=== PATIENT | male | born 1955 | race Caucasian/White ===

== ENCOUNTER 2017-03-21 05:30 | Day surgery (SDC) | payer BC ==
[2017-03-18 08:17] LABS: HEMATOCRIT 44.1 % (40.0-51.0); HEMOGLOBIN 14.5 g/dL (13.6-17.8)
--- NOTE | ~2017-03-21 | OP ---
Record Of Operation [facility] [address] [place]. 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 PROCEDURES: Right L3-4 microdiscectomy, use of operative microscope, minimal access spine technology, intraoperative O-arm CT scan with computer navigation. SURGEON: Kody Hernandez DO. ANESTHESIA: General. ESTIMATED BLOOD LOSS: 10 mL. COMPLICATIONS: None. INDICATIONS: The patient is a pleasant, 61-year-old with intractable right buttock and leg pain who failed conservative treatment. After discussion of risks and benefits, elected to proceed with surgery. PROCEDURE IN DETAIL: I identified the patient in the holding area. Consent was obtained. Went to the operating room. Underwent general anesthesia with endotracheal intubation. Prepped and draped in the usual sterile fashion. Operative safety pause was performed and then we proceeded with surgery. The O-arm registration frame was placed in the iliac crest. O-arm was brought in for intraoperative CT scan. Computer registration materials were verified. Under computer guidance, a right longitudinal incision was made over the L3-L4 level, taken down through the fascial layer. Tube dilators were used to minimally invasively dissect down to the right L3-4 interspace. Operative microscope was brought in. A alyx was used to perform a laminotomy. Renée performed a foraminotomy and partial facetectomy. Disc was incised. Free disc material removed with pituitary. The L3 and L4 nerve roots were free of compression. Irrigation performed. Hemostasis achieved. 40 mg Depo-Medrol injected over the nerve roots. Layered closure performed. Sterile dressings applied. The patient was awoken and extubated, taken to the recovery room in stable condition. OPERATIVE FINDING: Severe stenosis, right L3-4. TERRENCE/YARELIS Kody Yost Record Of Operation [address] [place]. [address] NAME: AIME GOODWIN JR : 53 STATUS : REG [facility] [place] PAT#: [id number] AGE: 61 ADM/REG DATE : 03/21/17 MR#: [id number] REPORT SERV DATE: 03/21/17 DICTATED BY: KODY HERNANDEZ DATE: 03/21/17 REPORT STATUS : Draft TRANSCRIBED BY: MODL DATE: 03/21/17 DO Mary / [id number] CC: DO Brandi Cha M.D.
[~2017-03-21 05:30] MED LIST: CIALIS20 MG PO; LYRICA75 PO
== END 2017-03-21 23:59 | disposition home or self-care (01) ==
LOC: SDC 05:30
PROVIDERS: Orthopaedic Surgery
PROC: 0SB20ZZ Excision of Lumbar Vertebral Disc, Open Approach (ICD-10-PCS; 2017-03-21)
PROC: 01NB0ZZ Release Lumbar Nerve, Open Approach (ICD-10-PCS; principal; 2017-03-21 06:45)
DX: M51.16 Intervertebral disc disorders with radiculopathy, lumbar region (principal); M48.06 Spinal stenosis, lumbar region; G47.30 Sleep apnea, unspecified; M19.90 Unspecified osteoarthritis, unspecified site; Z79.899 Other long term (current) drug therapy
CPT/HCPCS: 85014; 85018; 88304; 88311; 93005; A9270-GY; J0690; J1030; J1170; J2250; J2405; J2710; J3010